=== PATIENT | female | born 1985 | race American Indian/Alaskan Native ===

== ENCOUNTER 2017-09-11 13:32 | Emergency (ER) | payer SELFPAY ==
[2017-09-11 13:46] VITALS: BP 114/69
--- NOTE | 2017-09-11 18:21 | Emergency Department Report ---
Minor Respiratory - HPI Chief Complaint: Upper Respiratory Infection Stated Complaint: FLU LIKE SX Time Seen by Provider: 09/11/17 18:08 Duration: over 1 week Pain Location: Other (generalized aching in 01/10) Severity: severe Minor Respiratory: Yes Rhinorrhea (nasal congestion), Yes Able to Tolerate Fluids, Yes Cough (dry cough), Yes Sick Contacts, No Sore Throat, No Ear Pain, No Hemoptysis, No Chest Pain, No Shortness of Breath, No Fever Other History: Patient here with her family member. She reports flulike symptoms that's been getting worse over the last 2 days but spin ongoing for 1 week. She says she's been taking [id number] medication but it's not helping. She is having body aches that's 8 out of 10 that comes and goes. She says she feels tired. Denies any fever or chills. Denies any chest pain or shortness of breath. Denies any sore throat. Denies any nausea or vomiting. ED Review of Systems ROS: Stated complaint: FLU LIKE SX Other details as noted in HPI Comment: All other systems reviewed and negative Constitutional: no symptoms reported Eyes: denies: eye pain, eye discharge ENT: congestion. denies: ear pain, throat pain, dental pain Respiratory: no symptoms reported. denies: cough, orthopnea, shortness of breath, SOB with exertion, SOB at rest, stridor, wheezing Cardiovascular: denies: chest pain, palpitations, dyspnea on exertion, edema, syncope, paroxysmal nocturnal dyspnea Gastrointestinal: denies: abdominal pain, nausea, vomiting Musculoskeletal: myalgia. denies: back pain, joint swelling, arthralgia Skin: denies: rash Neurological: denies: headache, weakness, numbness, paresthesias, confusion, abnormal gait, vertigo ED Past Medical Hx - Past Medical History Previous Medical History?: Yes Hx Asthma: Yes Additional medical history: flu - Surgical History Past Surgical History?: No - Family History Family history: no significant - Social History Smoking Status: Current Some Day Smoker Substance Use Type: Alcohol, Marijuana - Medications Home Medications: Home Medications Medication Instructions Recorded Confirmed Last Taken Type Amoxicillin/K Clav Tab [Augmentin 1 tab PO Q12HR 10 Days #20 tab 09/11/17 Unknown Rx 875 mg] Cetirizine HCl [ZyrTEC] 10 mg PO QAM #14 capsule 09/11/17 Unknown Rx Fluticasone [Flonase] 1 spray NS QDAY 14 Days #14 bottle 09/11/17 Unknown Rx Ibuprofen [Motrin] 600 mg PO Q8H PRN #12 tablet 09/11/17 Unknown Rx Minor Respiratory Exam - Exam General: Vital signs noted. No distress. Alert and acting appropriately. This is a 31 yo female well nourished, well nourished in no acute distress. HEENT: Yes Moist Mucous Membranes (Uvula midline and oral airway patent), Yes Rhinorrhea (nasal congestion and erythema), No Pharyngeal Erythema, No Pharyngeal Exudates, No Conjuctival Injection, No Frontal Tenderness, No Maxillary Tenderness Ear: Neither TM Bulge (Casey TM congested), Neither TM Erythema, Neither EAC Pain , Neither EAC Discharge Neck: Yes Supple (Full ROM), No Adenopathy Lungs: Yes Good Air Exchange (CTAB), Yes Cough (DRY), No Wheezes, No Ronchi, No Stridor Heart: Yes Regular (s1s2), No Murmur Abdomen: Yes Normal Bowel Sounds (in all quadrants), No Tenderness (NTTP in all quadrants), No Peritoneal Signs Skin: No Rash, No Edema Neurologic: Alert and oriented, no deficits. Normal exam Musculoskeletal: Unremarkable. normal exam No C/C/E. + 2 pulses ED Course Vital Signs 09/11/17 13:43 Temperature 98.1 F Pulse Rate 85 Respiratory 18 Rate Blood Pressure 114/69 O2 Sat by Pulse 98 Oximetry - Reevaluation(s) Reevaluation #1: 09/11/17 18:36 Patient given motrin for pain in ED ED Medical Decision Making - Medical Decision Making ED course: Pt here complaining of flulike symptoms for over a week and found to have acute sinusitis with cough and body aches. Patient was given Motrin 800 mg emergency room for body aches. She voiced understanding discharge instruction and treatment plan and discharged home in stable condition with prescription for Augmentin and Motrin, Flonase and Zyrtec. Critical care attestation.: If time is entered above; I have spent that time in minutes in the direct care of this critically ill patient, excluding procedure time. ED Disposition Clinical Impression: Body aches, Cough Sinusitis Qualifiers: Sinusitis location: unspecified location Chronicity: acute Recurrence: not specified as recurrent Qualified Code(s): J01.90 - Acute sinusitis, unspecified Disposition: DC-01 TO HOME OR SELFCARE Is pt being admited?: No Does the pt Need Aspirin: No Condition: Stable Instructions: Musculoskeletal Pain (ED), Sinusitis (ED) Additional Instructions: Please increase her fluid intake Flush nostrils with saline nasal spray take antibiotic as prescribed F/U with primary care physician as instructed Prescriptions: Amoxicillin/K Clav Tab [Augmentin 875 mg] 1 tab PO Q12HR 10 Days #20 tab Cetirizine HCl [ZyrTEC] 10 mg PO QAM #14 capsule Fluticasone [Flonase] 1 spray NS QDAY 14 Days #14 bottle Ibuprofen [Motrin] 600 mg PO Q8H PRN #12 tablet PRN Reason: Pain Referrals: [facility] [Outside] - 09/13/17 Forms: Work/School Release Form(ED)
[2017-09-11] MEDS ORDERED: MOTRIN PO ONE (18:36)
== END 2017-09-11 18:50 | disposition home or self-care (01) ==
LOC: ED 13:32
DX: J32.9 Chronic sinusitis, unspecified (principal); J45.909 Unspecified asthma, uncomplicated; F17.200 Nicotine dependence, unspecified, uncomplicated; F12.10 Cannabis abuse, uncomplicated
CPT/HCPCS: 99282

== ENCOUNTER 2017-10-15 17:39 | Emergency (ER) | payer SELFPAY ==
[2017-10-15 18:06] VITALS: BP 124/76
[2017-10-15] MEDS ORDERED: MOTRIN PO ONE (20:10)
--- NOTE | 2017-10-15 20:11 | Emergency Department Report ---
ED General Adult HPI - General Chief complaint: Upper Respiratory Infection Stated complaint: CP/BACK PAIN Time Seen by Provider: 10/15/17 19:28 Source: patient, family Mode of arrival: Ambulatory Limitations: No Limitations - History of Present Illness Initial comments: Patient reportedly skin to the emergency room with her family because she sustained a hotel that is possible mass and mold and she's been sitting in a hotel for a while with her family and her and her family has symptoms of cough, runny nose and congestion, fatigue and generalized aching in. She says she is having some chest tightness at 9 out of 10 at its on and off.located to the mid chest. Patient reports she was examined shortness of breath earlier but she's not having any at present she is complaining of generalized aching and at 9 out of 10. Patient said that when she is away from the motel like now she doesn't have symptoms but when she is inside the hotel room this when she has her symptoms. She is currently not having any chest pain. Pain is achy to chest and generalized better when not expose to mold and worse when she isn't [place]. Denies any control. Denies any recent long distance travel. Laceration appeared S5 08/20/2017. It's stated in patient triage note that she is on back pain but she says she is just having generalized aching. Denies any fever or chills. Denies any nausea or vomiting. No medication taken for symptoms. MD Complaint: exposure to meth and mold with upper respiratory symptoms Onset/Timin -: month(s) Location: chest, back, upper extremity, lower extremity Radiation: non-radiation Severity scale (0 -10): 9 Quality: aching Consistency: intermittent Improves with: other (when not in hotel room) Worsens with: other (and in no tolerable) Associated Symptoms: chest pain, cough, other (fatigue with generalized aching and). denies: confusion, diaphoresis, fever/chills, headaches, loss of appetite , malaise, nausea/vomiting, rash, seizure, shortness of breath, syncope Treatments Prior to Arrival: none - Related Data Previous Rx's Medication Instructions Recorded Last Taken Type Cetirizine HCl [ZyrTEC] 10 mg PO QAM 14 Days #14 capsule 10/15/17 Unknown Rx Fluticasone [Flonase] 1 spray NS QDAY 14 Days #1 bottle 10/15/17 Unknown Rx Ibuprofen [Motrin] 600 mg PO Q8H PRN #12 tablet 10/15/17 Unknown Rx Allergies Allergy/AdvReac Type Severity Reaction Status Date / Time No Known Allergies Allergy Unverified 09/11/17 13:42 ED Review of Systems ROS: Stated complaint: CP/BACK PAIN Other details as noted in HPI Constitutional: weakness. denies: chills, fever Eyes: denies: eye pain, eye discharge, vision change ENT: congestion. denies: ear pain, throat pain Respiratory: cough. denies: orthopnea, shortness of breath, SOB with exertion, SOB at rest, stridor, wheezing Cardiovascular: chest pain. denies: palpitations, dyspnea on exertion, orthopnea, edema, syncope, paroxysmal nocturnal dyspnea Gastrointestinal: denies: abdominal pain, nausea, vomiting, diarrhea, constipation, hematemesis, melena, hematochezia Genitourinary: denies: urgency, dysuria, frequency, hematuria, discharge, abnormal menses Musculoskeletal: myalgia. denies: back pain, joint swelling, arthralgia Skin: denies: rash, lesions Neurological: denies: headache, weakness, numbness, paresthesias, abnormal gait , vertigo ED Past Medical Hx - Past Medical History Previous Medical History?: Yes Hx Asthma: Yes Additional medical history: flu - Surgical History Past Surgical History?: No - Family History Family history: hypertension - Social History Smoking Status: Current Every Day Smoker Substance Use Type: Marijuana Other Social History: Lives with partner in children - Medications Home Medications: Home Medications Medication Instructions Recorded Confirmed Last Taken Type Cetirizine HCl [ZyrTEC] 10 mg PO QAM 14 Days #14 capsule 10/15/17 Unknown Rx Fluticasone [Flonase] 1 spray NS QDAY 14 Days #1 bottle 10/15/17 Unknown Rx Ibuprofen [Motrin] 600 mg PO Q8H PRN #12 tablet 10/15/17 Unknown Rx ED Physical Exam - General Limitations: No Limitations General appearance: alert, in no apparent distress - Head Head exam: Present: atraumatic, normocephalic, normal inspection, other (normal exam) - Eye Eye exam: Present: normal appearance, PERRL, EOMI. Absent: scleral icterus, conjunctival injection, nystagmus, periorbital swelling, periorbital tenderness Pupils: Present: normal accommodation - ENT ENT exam: Present: normal orophraynx, mucous membranes moist, normal external ear exam, other (lateral nasal mucosa pale and boggy with clear drainage.). Absent: TM's normal bilaterally (bilateral TM congested without erythema) - Neck Neck exam: Present: normal inspection, full ROM. Absent: tenderness, lymphadenopathy - Respiratory Respiratory exam: Present: normal lung sounds bilaterally. Absent: respiratory distress, wheezes, rales, rhonchi, stridor, chest wall tenderness, accessory muscle use, decreased breath sounds, prolonged expiratory - Cardiovascular Cardiovascular Exam: Present: regular rate, normal rhythm, normal heart sounds. Absent: systolic murmur, diastolic murmur - GI/Abdominal GI/Abdominal exam: Present: soft, normal bowel sounds. Absent: distended, tenderness, guarding, rebound, rigid, organomegaly, mass, bruit, pulsatile mass , hernia - Extremities Exam Extremities exam: Present: normal inspection, full ROM, normal capillary refill , other (no no clubbing, cyanosis or edema. +2 pulses all extremities and no neurovascular compromise). Absent: tenderness, pedal edema, joint swelling, calf tenderness - Back Exam Back exam: Present: normal inspection, full ROM, other (ambulates without any difficulties). Absent: tenderness, CVA tenderness (R), CVA tenderness (L), muscle spasm, paraspinal tenderness, vertebral tenderness, rash noted - Neurological Exam Neurological exam: Present: alert, oriented X3, normal gait, reflexes normal, other (no focal neurological deficit). Absent: motor sensory deficit - Psychiatric Psychiatric exam: Present: normal affect, normal mood - Skin Skin exam: Present: warm, dry, intact, normal color, rash ED Course Vital Signs 10/15/17 18:02 Temperature 98.2 F Pulse Rate 69 Respiratory 20 Rate Blood Pressure 124/76 O2 Sat by Pulse 97 Oximetry - Reevaluation(s) Reevaluation #1: 10/15/17 22:18 Patient is stable and receive Motrin 800 mg by mouth emergency room for pain which relieved her body aches. She is not having any shortness of breath or chest pain and reports that she only has it when she is in the hotel room. ED Medical Decision Making - Radiology Data Radiology results: report reviewed CXR reveals no acute cardiopulmonary findings Patient: JOVI HOOK MR#: [id number] : 1985 Acct:[id number] Age/Sex: 32 / F ADM Date: 10/15/17 Loc: ED Attending Dr: Ordering Physician: LISS AKERS Date of Service: 10/15/17 Procedure(s): XR chest routine 2V Accession Number(s): [id number] cc: LISS AKERS Fluoro Time In Minutes: FINAL REPORT PROCEDURE: XR CHEST ROUTINE 2V TECHNIQUE: PA and lateral chest radiographs were obtained. CPT 25322 HISTORY: cough/congestion COMPARISON: No prior studies are available for comparison. FINDINGS: Heart: Normal size. Mediastinum/Vessels: Normal. Lungs/Pleural space: Clear.. Bony thorax: No acute osseous abnormality. Other: IMPRESSION: Negative exam. Transcribed By: GAVIOTA Dictated By: ANDRA OTOOLE MD Electronically Authenticated By: ANDRA OTOOLE MD Signed Date/Time: 10/15/172103 DD/ 03 TD/TT: 10/15/172103 - Medical Decision Making ED course: She reports cough congestion with chest tightness due to exposure to molds and hotel room was uses meth room in the past. Patient reports that she is only having symptoms of chest pain and some shortness of breath when she is in a hotel room that when she is outside of the hotel room she is not having any of those symptoms but she does have findings for allergic rhinitis and cough. I discussed the patient effects and mold on other environmental allergen on respiratory systems and body and she was understanding. I also discussed the patient is to call the Department of Health if she talks to the analysis manager and he does not take any actions and/or to leave the premises and find another hotel. Patient was given Motrin 800 mg in the emergency room for body aches which relieved her pain. teaching on smoking cessation. She is currently not having any chest pain or shortness of breath. Chest x-ray reveals normal exam. She discharged home in stable condition with prescription for Flonase, Motrin and Zyrtec. She is to follow-[facility] with [facility] in 2[facility]3 days Critical care attestation.: If time is entered above; I have spent that time in minutes in the direct care of this critically ill patient, excluding procedure time. ED Disposition Clinical Impression: Body aches, Cough in adult patient, Nicotine abuse, Suspected exposure to mold Allergic rhinitis Qualifiers: Allergic rhinitis trigger: unspecified Allergic rhinitis seasonality: unspecified seasonality Qualified Code(s): J30.9 - Allergic rhinitis, unspecified Disposition: DC-01 TO HOME OR SELFCARE Is pt being admited?: No Does the pt Need Aspirin: No Condition: Stable Instructions: How to Stop Smoking (ED), Allergic Rhinitis (ED), Acute Cough (ED ), Musculoskeletal Pain (ED) Additional Instructions: Please remove use off and children from areas that you suspect that there are multiple Take medication as prescribed call Department of Health if landlord does not do anything to secure area that has mold Stop Smoking Prescriptions: Cetirizine HCl [ZyrTEC] 10 mg PO QAM 14 Days #14 capsule Fluticasone [Flonase] 1 spray NS QDAY 14 Days #1 bottle Ibuprofen [Motrin] 600 mg PO Q8H PRN #12 tablet PRN Reason: Pain Referrals: PRIMARY CARE,MD [Primary Care Provider] - 2-[address] [facility] [Outside] - 2-3 Days Forms: Accompanied Note, Work/School Release Form(ED)
--- NOTE | 2017-10-15 21:10 | XRay Report ---
FINAL REPORT PROCEDURE: XR CHEST ROUTINE 2V TECHNIQUE: PA and lateral chest radiographs were obtained. CPT 23493 HISTORY: cough/congestion COMPARISON: No prior studies are available for comparison. FINDINGS: Heart: Normal size. Mediastinum/Vessels: Normal. Lungs/Pleural space: Clear.. Bony thorax: No acute osseous abnormality. Other: IMPRESSION: Negative exam.
== END 2017-10-15 23:50 | disposition home or self-care (01) ==
LOC: ED 17:39
DX: J30.9 Allergic rhinitis, unspecified (principal); F17.200 Nicotine dependence, unspecified, uncomplicated; F12.10 Cannabis abuse, uncomplicated
CPT/HCPCS: 71046; 99283

== ENCOUNTER 2018-10-04 13:32 | Emergency (ER) | payer OTHER ==
[2018-10-04 14:01] VITALS: BP 127/79
[2018-10-04] MEDS ORDERED: TORADOL IM STA (14:03)
--- NOTE | 2018-10-04 14:03 | Emergency Department Report ---
Blank Doc - Documentation Documentation: 4 day history of right sided chest francesco worse with all ROM and touch gets SOB w hen laying on left side. PMH of asthma.
[2018-10-04] MEDS ORDERED: NORCO 10/325 PO ONE (14:25)
--- NOTE | 2018-10-04 14:30 | Emergency Department Report ---
ED Chest Pain HPI - General Chief Complaint: Chest Pain Stated Complaint: GENERAL ILLNESS Time Seen by Provider: 10/04/18 14:02 Source: patient, EMS Mode of arrival: Ambulatory Limitations: No Limitations - History of Present Illness Initial Comments: R side chest pain x 4 days Cough x 1 week Pain worse with movement and palpation especially R lateral per patient Others at home with cough as well. MD Complaint: chest pain -: Gradual, days(s) (4) Onset: other Pain Location: right chest Pain Radiation: none Severity: severe Severity scale (0 -10): 8 Quality: sharp Consistency: constant Improves With: nothing Worsens With: palpation, movement re: denies: nausea, vomting Other Symptoms: cough. denies: fever Treatments Prior to Arrival: none Aspirin use within the Past 7 Days: (0) No - Related Data Previous Rx's Medication Instructions Recorded Last Taken Type Cetirizine HCl [ZyrTEC] 10 mg PO QAM 14 Days #14 capsule 10/15/17 Unknown Rx Fluticasone [Flonase] 1 spray NS QDAY 14 Days #1 bottle 10/15/17 Unknown Rx Ibuprofen [Motrin] 600 mg PO Q8H PRN #12 tablet 10/15/17 Unknown Rx Diclofenac Sodium 75 mg PO BID PRN #20 tablet.dr 10/04/18 Unknown Rx Lidocaine [Lidoderm] 1 each TP DAILY #10 adh..patch 10/04/18 Unknown Rx methylPREDNISolone [Medrol] 4 mg PO QAM #1 tab.ds.pk 10/04/18 Unknown Rx Allergies Allergy/AdvReac Type Severity Reaction Status Date / Time No Known Allergies Allergy Verified 10/04/18 13:58 Heart Score - HEART Score History: Slightly suspicious EKG: Normal Age: < 45 Risk factors: No known risk factors Troponin: < normal limit HEART Score: 0 ED Review of Systems ROS: Stated complaint: GENERAL ILLNESS Other details as noted in HPI Comment: All other systems reviewed and negative Respiratory: see HPI Cardiovascular: as per HPI ED Past Medical Hx - Past Medical History Hx Asthma: Yes Additional medical history: flu - Surgical History Past Surgical History?: No - Social History Smoking Status: Current Every Day Smoker Substance Use Type: Marijuana - Medications Home Medications: Home Medications Medication Instructions Recorded Confirmed Last Taken Type Cetirizine HCl [ZyrTEC] 10 mg PO QAM 14 Days #14 capsule 10/15/17 Unknown Rx Fluticasone [Flonase] 1 spray NS QDAY 14 Days #1 bottle 10/15/17 Unknown Rx Ibuprofen [Motrin] 600 mg PO Q8H PRN #12 tablet 10/15/17 Unknown Rx Diclofenac Sodium 75 mg PO BID PRN #20 tablet.dr 10/04/18 Unknown Rx Lidocaine [Lidoderm] 1 each TP DAILY #10 adh..patch 10/04/18 Unknown Rx methylPREDNISolone [Medrol] 4 mg PO QAM #1 tab.ds.pk 10/04/18 Unknown Rx ED Physical Exam - General Limitations: No Limitations General appearance: alert, in no apparent distress - Head Head exam: Present: atraumatic, normocephalic - Eye Eye exam: Present: normal appearance - ENT ENT exam: Present: mucous membranes moist - Neck Neck exam: Present: normal inspection, full ROM. Absent: tenderness - Respiratory Respiratory exam: Present: normal lung sounds bilaterally, chest wall tenderness (diffuse R side, especially mid-axillary). Absent: respiratory distress - Cardiovascular Cardiovascular Exam: Present: regular rate, normal rhythm. Absent: systolic murmur, diastolic murmur, rubs, gallop - GI/Abdominal GI/Abdominal exam: Present: soft, normal bowel sounds. Absent: tenderness, guarding - Extremities Exam Extremities exam: Present: normal inspection - Back Exam Back exam: Present: normal inspection - Neurological Exam Neurological exam: Present: alert, oriented X3 - Psychiatric Psychiatric exam: Present: normal affect, normal mood - Skin Skin exam: Present: warm, dry, intact, normal color. Absent: rash ED Course Vital Signs 10/04/18 13:58 Temperature 97.5 F L Pulse Rate 72 Respiratory 16 Rate Blood Pressure 127/79 O2 Sat by Pulse 100 Oximetry ED Medical Decision Making - EKG Data -: EKG Interpreted by Me EKG shows normal: sinus rhythm, axis Rate: bradycardia - EKG Data When compared to previous EKG there are: previous EKG unavailable Interpretation: no acute changes, normal EKG - Radiology Data Radiology results: report reviewed, image reviewed normal cxr - Medical Decision Making cough, now with CP reproducible on exam no concern for ACS, PE, dissection plan- CXR, meds given toradol and norco here - Differential Diagnosis contusion, fx, bronchitis, pna Critical care attestation.: If time is entered above; I have spent that time in minutes in the direct care of this critically ill patient, excluding procedure time. ED Disposition Clinical Impression: Cough, Chest wall pain Disposition: DC-01 TO HOME OR SELFCARE Is pt being admited?: No Condition: Good Instructions: Chest Pain (ED), Costochondritis (ED) Prescriptions: Diclofenac Sodium 75 mg PO BID PRN #20 tablet.dr PRN Reason: pain Lidocaine [Lidoderm] 1 each TP DAILY #10 adh..patch methylPREDNISolone [Medrol] 4 mg PO QAM #1 tab.ds.pk Referrals: GEOR[place]IA IRVIN MD [Primary Care Provider] - 3-5 Days Time of Disposition: 14:51
--- NOTE | 2018-10-04 14:48 | XRay Report ---
PROCEDURE: XR CHEST ROUTINE 2V TECHNIQUE: PA and lateral chest HISTORY: right cp COMPARISONS: Chest x-ray October 15, 2017 FINDINGS: Heart size normal. Trachea midline. No pneumothorax. No effusion. No acute airspace disease. No acute bony abnormality. IMPRESSION: No active pulmonary disease. This document is electronically signed by Wenceslao Terrazas MD., Oct 04 2018 02:46:00 PM ET
== END 2018-10-04 15:04 | disposition home or self-care (01) ==
LOC: ED 13:32
DX: R07.89 Other chest pain (principal); R05 Cough; J45.909 Unspecified asthma, uncomplicated; F17.200 Nicotine dependence, unspecified, uncomplicated; F12.10 Cannabis abuse, uncomplicated; Z79.899 Other long term (current) drug therapy
CPT/HCPCS: 71046; 93005; 93010; 96372; 99284; J1885